=== PATIENT | female | born 1995 | race African-American/Black ===

== ENCOUNTER 2017-10-13 14:41 | Inpatient (IN) ==
[2017-10-13] MEDS ORDERED: ONDANSETRON 4 MG/2 ML VIAL IV PRN (15:43)
[2017-10-13] MEDS ORDERED: MEPERIDINE 50 MG/1 ML VIAL IV PRN (15:43)
[2017-10-13] MEDS ORDERED: BUTORPHANOL 2 MG/ML VIAL IV PRN (15:43)
[2017-10-13] MEDS ORDERED: LACTATED RINGERS 500 ML IV PRN (15:43)
[2017-10-13 16:10] LABS: Basophils % 0.1 % (0.0-0.8); Eosinophils # 0.1 10*3/uL (0.0-0.87); Eosinophils % 0.7 % (0.00-10.9); Hematocrit 28.6 VOL% (35.7-47.0); Hemoglobin 9.1 GM/DL (12.0-16.0); Immature Granulocytes Absolute 0.13 #; Lymphocytes # 2.9 10*3/uL (1.4-4.0); Mean Corpuscular HGB Conc 31.8 GM/DL (32-36); Mean Corpuscular Hemoglobin 28 PG (27-34); Mean Corpuscular Volume 86.7 FL (87-102); Mean Platelet Volume 10.6 FL (9.6-12.0); Monocytes % 7.5 % (1.7-12.7); Neutrophils # 9.5 10*3/uL (1.4-7.4); Neutrophils % 69.7 % (38.7-73.9); Platelet Count 349 T/CUMM (130-400); White Blood Count 13.6 T/CUMM (4-12)
[2017-10-13] MEDS: LACTATED RINGERS 1,000 ML IV SCH ×2 (16:28→21:49)
[2017-10-13] MEDS ORDERED: DINOPROSTONE VAG GEL 10 MG SYRINGE VAG ONE (16:30)
[2017-10-13 16:36] LABS: Alanine Aminotransferase 11 U/L (13-56); Albumin 2.7 G/DL (3.4-5.0); Alkaline Phosphatase 171 U/L (45-117); Aspartate Amino Transferase 11 U/L (0-37); Bilirubin,Total < 0.39 MG/DL (0.2-1.0); Blood Urea Nitrogen 5 MG/DL (7-18); Calcium 9.1 MG/DL (8.5-10.1); Glucose 88 MG/DL (74-106); Osmolality,Calculated 265.1 MOS/KG (273-304); Potassium 4.1 MMOL/L (3.5-5.1); Sodium 135 MMOL/L (136-145); Total Protein 7.7 G/DL (6.4-8.3); Uric Acid 2.3 MG/DL (2.6-6.0)
[2017-10-13] MEDS ORDERED: AMPICILLIN INJ 2,000 MG in SODIUM CHLORIDE 0.9% 100 ML IV ONE (17:00)
[2017-10-13] MEDS: AMPICILLIN INJ 1,000 MG in SODIUM CHLORIDE 0.9% 100 ML IV SCH (21:48)
[2017-10-14] MEDS: OXYTOCIN/LR 20 UNIT/1,000 ML BAG IV SCH ×2 (00:01→21:34)
[2017-10-14] MEDS ORDERED: OXYTOCIN/LR 20 UNIT/1,000 ML BAG IV SCH (02:00)
[2017-10-14] MEDS: AMPICILLIN INJ 1,000 MG in SODIUM CHLORIDE 0.9% 100 ML IV SCH ×4 (02:04→14:45)
[2017-10-14] MEDS: LACTATED RINGERS 1,000 ML IV SCH (10:41)
[2017-10-14] MEDS ORDERED: OXYTOCIN/LR 30 UNIT/1,000 ML BAG IV ONE (17:00)
[2017-10-14] MEDS ORDERED: ceFAZolin 2,000 MG in PREMIX 1 EACH IV ONE (17:00)
[2017-10-14] MEDS ORDERED: OXYTOCIN 10 UNIT/ML VIAL IM ONE (17:00)
[2017-10-14] MEDS ORDERED: CITRIC ACID/SODIUM CITRATE 30 ML UDCUP PO ONE (17:06)
[2017-10-14] MEDS ORDERED: FAMOTIDINE 20 MG/2 ML VIAL IV ONE (17:07)
[2017-10-14] MEDS ORDERED: MORPHINE 10 MG/10 ML VIAL ONE (19:29)
[2017-10-14] MEDS ORDERED: ePHEDrine 50 MG/ML AMP ONE (19:30)
[2017-10-14] MEDS ORDERED: ONDANSETRON 4 MG/2 ML VIAL ONE (19:30)
[2017-10-14 19:44] LABS: Cord Venous Blood HCO3 18.7 MMOL/L; Cord Venous Blood PCO2 34.1 MMHG; Cord Venous Blood PO2 41.5
[2017-10-14 19:45] LABS: Cord Arterial Blood HCO3 19.5 MMOL/L
[2017-10-14 20:06] LABS: Apearance,Urine CLEAR (Clear); Bacteria,Urine Occasional /HPF (Few); Bilirubin,Urine Negative (Negative); Blood, Urine Negative (Negative); Glucose,Urine (UA) Negative (Negative); Ketones,Urine 80 mg/dL (Negative); Mucus,Urine Occasional /LPF (Occasional); Nitrite,Urine Negative (Negative); Protein,Urine Negative; RBC,Urine 2 /HPF (0-4); Squamous Epithelial Cell,Urine Occasional /HPF (0-10); Urine Color Yellow (Yellow); Urine Specific Gravity 1.009 (1.001-1.035); Urine Urobilinogen < 2.0 EU/DL (0.2-1.0); WBC,Urine 2 /HPF (0-6)
[2017-10-14] MEDS ORDERED: HYDROmorphone 2 MG/1 ML VIAL IV PRN (20:25)
[2017-10-14] MEDS ORDERED: SIMETHICONE CHEW 80 MG TABLET PO PRN (22:19)
[2017-10-14] MEDS ORDERED: ACETAMINOPHEN 325 MG TABLET PO PRN (22:19)
[2017-10-14] MEDS ORDERED: OXYTOCIN/LR 20 UNIT/1,000 ML BAG IV ONE (22:19)
[2017-10-14] MEDS ORDERED: LACTATED RINGERS 1,000 ML IV SCH (22:19)
[2017-10-14] MEDS ORDERED: ONDANSETRON 4 MG/2 ML VIAL IV PRN (22:19)
[2017-10-14] MEDS ORDERED: RHO(D) IMMUNE GLOBULIN 300 MCG SYRINGE IM ONE (22:19)
[2017-10-15] MEDS: ceFAZolin 1,000 MG in SYRINGE 1 EACH IV SCH ×2 (03:02→10:57)
[2017-10-15 04:28] LABS: Basophils % 0.2 % (0.0-0.8); Eosinophils # 0.1 10*3/uL (0.0-0.87); Eosinophils % 0.3 % (0.00-10.9); Hematocrit 26.5 VOL% (35.7-47.0); Hemoglobin 8.6 GM/DL (12.0-16.0); Immature Granulocytes % 0.6 %; Immature Granulocytes Absolute 0.09 #; Lymphocytes # 2.9 10*3/uL (1.4-4.0); Lymphocytes % 18.7 % (21.3-54.2); Mean Corpuscular HGB Conc 32.5 GM/DL (32-36); Mean Corpuscular Hemoglobin 28 PG (27-34); Mean Corpuscular Volume 85.8 FL (87-102); Mean Platelet Volume 11.2 FL (9.6-12.0); Monocytes # 1.4 10*3/uL (0.11-0.8); Monocytes % 8.7 % (1.7-12.7); Neutrophils # 11.1 10*3/uL (1.4-7.4); Neutrophils % 71.5 % (38.7-73.9); Platelet Count 244 T/CUMM (130-400); Red Blood Count 3.09 MC/CUMM (3.8-5.5); White Blood Count 15.6 T/CUMM (4-12)
[2017-10-15] MEDS: DOCUSATE SODIUM 100 MG CAPSULE PO SCH ×3 (07:04→21:15)
[2017-10-15 08:26] LABS: Basophils % 0.1 % (0.0-0.8); Eosinophils % 0.3 % (0.00-10.9); Hematocrit 26.9 VOL% (35.7-47.0); Hemoglobin 8.7 GM/DL (12.0-16.0); Immature Granulocytes % 0.7 %; Lymphocytes % 13.3 % (21.3-54.2); Mean Corpuscular HGB Conc 32.3 GM/DL (32-36); Mean Corpuscular Hemoglobin 28 PG (27-34); Mean Corpuscular Volume 86.2 FL (87-102); Mean Platelet Volume 10.7 FL (9.6-12.0); Monocytes # 1.3 10*3/uL (0.11-0.8); Monocytes % 8.5 % (1.7-12.7); Neutrophils # 11.8 10*3/uL (1.4-7.4); Neutrophils % 77.1 % (38.7-73.9); Platelet Count 272 T/CUMM (130-400); Red Blood Count 3.12 MC/CUMM (3.8-5.5); Red Cell Distribution Width 15.1 % (9.3-17.3); White Blood Count 15.3 T/CUMM (4-12)
[2017-10-15] MEDS: MAGNESIUM HYDROXIDE SUSP 30 ML UDCUP PO PRN (09:02)
[2017-10-15] MEDS: IBUPROFEN 800 MG TABLET PO PRN ×2 (09:02→19:32)
[2017-10-15] MEDS: MULTIVITAMIN (PRENATAL) TABLET PO SCH (09:02)
[2017-10-15] MEDS: FERROUS SULFATE 325 MG TABLET PO SCH ×2 (09:08→21:15)
[2017-10-15] MEDS ORDERED: diphenhydrAMINE CAP 50 MG CAPSULE PO PRN (16:15)
[2017-10-16] MEDS: MAGNESIUM HYDROXIDE SUSP 30 ML UDCUP PO PRN (00:46)
[2017-10-16] MEDS ORDERED: BISACODYL 10 MG SUPP RECTAL PRN (08:45)
[2017-10-16] MEDS: FERROUS SULFATE 325 MG TABLET PO SCH (08:50)
[2017-10-16] MEDS: MULTIVITAMIN (PRENATAL) TABLET PO SCH (08:51)
[2017-10-16] MEDS: DOCUSATE SODIUM 100 MG CAPSULE PO SCH (08:51)
[2017-10-16 11:59] VITALS: BP 118/75
== END 2017-10-16 14:25 | disposition home or self-care (01) | DRG 766 ==
LOC: N.LDOUT 14:41 → N.LD 14:45 → N.OB 10-14 21:50
PROVIDERS: ADMIT Obstetrics & Gynecology; ATTEND Obstetrics & Gynecology
PROC: LDCSECT (ICD-10-PCS; 2017-10-14 18:00)

== ENCOUNTER 2020-02-13 07:01 | Inpatient (IN) ==
[2020-02-13] MEDS ORDERED: CITRIC ACID/SODIUM CITRATE 30 ML UDCUP PO ONE (07:26)
[2020-02-13] MEDS ORDERED: ceFAZolin 3,000 MG in SYRINGE 1 EACH IV ONE (07:26)
[2020-02-13] MEDS ORDERED: FAMOTIDINE 20 MG/2 ML VIAL IV ONE (07:26)
[2020-02-13] MEDS ORDERED: OXYTOCIN 10 UNIT/ML VIAL IM ONE (07:29)
[2020-02-13] MEDS ORDERED: OXYTOCIN/LR 30 UNIT/1,000 ML BAG IV ONE (07:29)
[2020-02-13] MEDS ORDERED: LACTATED RINGERS 1,000 ML IV SCH ×2 (07:30→10:30)
[2020-02-13 08:12] LABS: Basophils % 0.2 % (0.0-0.8); Eosinophils # 0.1 10*3/uL (0.0-0.87); Eosinophils % 0.6 % (0.00-10.9); Hematocrit 31.5 VOL% (35.7-47.0); Hemoglobin 9.8 GM/DL (12.0-16.0); Immature Granulocytes % 0.7 %; Immature Granulocytes Absolute 0.09 #; Lymphocytes # 3.5 10*3/uL (1.4-4.0); Lymphocytes % 27.5 % (21.3-54.2); Mean Corpuscular HGB Conc 31.1 GM/DL (32-36); Mean Corpuscular Volume 84.5 FL (87-102); Mean Platelet Volume 10.6 FL (9.6-12.0); Monocytes % 7.7 % (1.7-12.7); Neutrophils % 63.3 % (38.7-73.9); Platelet Count 350 T/CUMM (130-400); Red Blood Count 3.73 MC/CUMM (3.8-5.5); Red Cell Distribution Width 15.7 % (9.3-17.3); White Blood Count 12.6 T/CUMM (4-12)
[2020-02-13 08:47] LABS: Alanine Aminotransferase 11 U/L (13-56); Albumin 2.5 G/DL (3.4-5.0); Alkaline Phosphatase 173 U/L (45-117); Aspartate Amino Transferase 10 U/L (0-37); Bilirubin,Total < 0.39 MG/DL (0.2-1.0); Blood Urea Nitrogen 8 MG/DL (7-18); Calcium 9.3 MG/DL (8.5-10.1); Estimated Glom Filtration Rate 235 ML/MIN; Glucose 87 MG/DL (74-106); Osmolality,Calculated 264.2 MOS/KG (273-304); Total Protein 7.9 G/DL (6.4-8.3)
[2020-02-13] MEDS ORDERED: LACTATED RINGERS 1,000 ML IV ONE (08:47)
[2020-02-13] MEDS ORDERED: SIMETHICONE CHEW 80 MG TABLET PO PRN (10:10)
[2020-02-13] MEDS ORDERED: ACETAMINOPHEN 325 MG TABLET PO PRN (10:10)
[2020-02-13] MEDS ORDERED: RHO(D) IMMUNE GLOBULIN 300 MCG SYRINGE IM ONE (10:10)
[2020-02-13] MEDS ORDERED: OXYTOCIN/LR 20 UNIT/1,000 ML BAG IV ONE (10:10)
[2020-02-13] MEDS ORDERED: ONDANSETRON 4 MG/2 ML VIAL IV PRN (10:10)
[2020-02-13 10:21] LABS: Apearance,Urine CLEAR (Clear); Bacteria,Urine Many /HPF (Few); Bilirubin,Urine Negative (Negative); Blood, Urine Small mg/dL (Negative); Glucose,Urine (UA) Negative (Negative); Ketones,Urine Negative (Negative); Mucus,Urine Occasional /LPF (Occasional); Nitrite,Urine Negative (Negative); Protein,Urine Negative; Squamous Epithelial Cell,Urine Occasional /HPF (0-10); Urine Color Yellow (Yellow); Urine Specific Gravity 1.016 (1.001-1.035); Urine Urobilinogen < 2.0 EU/DL (0.2-1.0); WBC,Urine 1 /HPF (0-6)
[2020-02-13] MEDS ORDERED: ONDANSETRON 4 MG/2 ML VIAL ONE (10:51)
[2020-02-13] MEDS ORDERED: DEXAMETHASONE 4 MG/1 ML VIAL ONE ×2 (10:51)
[2020-02-13] MEDS ORDERED: ROPIVACAINE 0.5% 30 ML VIAL ONE (10:51)
[2020-02-13] MEDS ORDERED: BUPIVACAINE SPINAL 0.75% 2 ML AMP SPINAL ONE (10:51)
[2020-02-13] MEDS ORDERED: PHENYLEPHRINE 1 MG/10 ML SYRINGE IV ONE (10:52)
[2020-02-13] MEDS ORDERED: MORPHINE 10 MG/10 ML VIAL ONE (10:52)
[2020-02-13] MEDS: IBUPROFEN 800 MG TABLET PO PRN (12:52)
[2020-02-13] MEDS ORDERED: SODIUM CHLORIDE 0.9% 50 ML IV ONE (17:26)
[2020-02-13] MEDS: ceFAZolin 1,000 MG in SYRINGE 1 EACH IV SCH (17:31)
[2020-02-13 18:16] LABS: Basophils % 0.2 % (0.0-0.8); Hematocrit 31.2 VOL% (35.7-47.0); Hemoglobin 9.6 GM/DL (12.0-16.0); Immature Granulocytes % 0.6 %; Immature Granulocytes Absolute 0.11 #; Lymphocytes # 1.5 10*3/uL (1.4-4.0); Lymphocytes % 7.9 % (21.3-54.2); Mean Corpuscular HGB Conc 30.8 GM/DL (32-36); Mean Platelet Volume 10.5 FL (9.6-12.0); Monocytes % 2.7 % (1.7-12.7); Neutrophils % 88.6 % (38.7-73.9); Platelet Count 329 T/CUMM (130-400); Red Blood Count 3.67 MC/CUMM (3.8-5.5); Red Cell Distribution Width 15.4 % (9.3-17.3); White Blood Count 19.1 T/CUMM (4-12)
[2020-02-13] MEDS: DOCUSATE SODIUM 100 MG CAPSULE PO SCH (22:24)
[2020-02-14] MEDS ORDERED: SODIUM CHLORIDE 0.9% 100 ML IV ONE (02:02)
[2020-02-14] MEDS: ceFAZolin 1,000 MG in SYRINGE 1 EACH IV SCH (02:16)
[2020-02-14 07:22] LABS: Basophils % 0.2 % (0.0-0.8); Eosinophils % 0.2 % (0.00-10.9); Hemoglobin 9.2 GM/DL (12.0-16.0); Immature Granulocytes % 0.8 %; Immature Granulocytes Absolute 0.16 #; Lymphocytes % 20.1 % (21.3-54.2); Mean Corpuscular HGB Conc 31.7 GM/DL (32-36); Mean Corpuscular Volume 84.5 FL (87-102); Mean Platelet Volume 10.6 FL (9.6-12.0); Monocytes % 8.1 % (1.7-12.7); Neutrophils % 70.6 % (38.7-73.9); Platelet Count 342 T/CUMM (130-400); Red Blood Count 3.43 MC/CUMM (3.8-5.5); Red Cell Distribution Width 15.4 % (9.3-17.3); White Blood Count 19.8 T/CUMM (4-12)
[2020-02-14] MEDS ORDERED: diphenhydrAMINE CAP 25 MG CAPSULE PO PRN (08:25)
[2020-02-14] MEDS ORDERED: diphenhydrAMINE CAP 25 MG CAPSULE ONE (08:28)
[2020-02-14] MEDS: FERROUS SULFATE 325 MG TABLET PO SCH ×2 (08:38→20:34)
[2020-02-14] MEDS: DOCUSATE SODIUM 100 MG CAPSULE PO SCH ×2 (08:38→20:34)
[2020-02-14] MEDS: MULTIVITAMIN (PRENATAL) TABLET PO SCH (08:38)
[2020-02-14] MEDS: MAGNESIUM HYDROXIDE SUSP 30 ML UDCUP PO PRN ×2 (08:38→20:34)
[2020-02-14] MEDS: METOCLOPRAMIDE 10 MG TABLET PO SCH ×2 (08:38→15:29)
[2020-02-14] MEDS: IBUPROFEN 800 MG TABLET PO PRN (15:29)
[2020-02-15] MEDS: IBUPROFEN 800 MG TABLET PO PRN (03:18)
[2020-02-15 07:18] VITALS: BP 99/67
[2020-02-15] MEDS: MAGNESIUM HYDROXIDE SUSP 30 ML UDCUP PO PRN (10:13)
[2020-02-15] MEDS: METOCLOPRAMIDE 10 MG TABLET PO SCH ×2 (10:14)
[2020-02-15] MEDS: DOCUSATE SODIUM 100 MG CAPSULE PO SCH (10:14)
[2020-02-15] MEDS: MULTIVITAMIN (PRENATAL) TABLET PO SCH (10:14)
[2020-02-15] MEDS: FERROUS SULFATE 325 MG TABLET PO SCH (10:14)
[2020-02-15] MEDS ORDERED: DIPH/TET/ACEL PERT BOOSTER VACCINE 0.5 ML VIAL IM ONE (12:19)
== END 2020-02-15 13:10 | disposition home or self-care (01) | DRG 788 ==
LOC: N.LDOUT 07:01 → N.LD 07:05 → N.OB 14:29
PROVIDERS: ADMIT Obstetrics & Gynecology; ATTEND Obstetrics & Gynecology
PROC: LDCSECT (ICD-10-PCS; 2020-02-13 08:30)